=== PATIENT | female | born 1975 | race Caucasian/White ===

== ENCOUNTER → 2024-05-13 | Outpatient (CLI) | payer BC, MEDICAID, SELFPAY ==
[2024-05-13 13:59] LABS: Thyroid Stimulating Hormone 0.59 uIU/mL (0.55-4.78)
[2024-05-19 07:22] LABS: ANA Screen, IFA NEGATIVE (NEGATIVE)
== END | disposition home or self-care (01) ==
LOC: COPL 12:39
PROVIDERS: PCP Internal Medicine; Referring Provider Specialist; Visit Provider Specialist
DX: R13.10 Dysphagia, unspecified (principal)
CPT/HCPCS: 36415; 84443; 86038

== ENCOUNTER 2024-05-18 10:50 | Day surgery (SDC) | payer BC, MEDICAID, SELFPAY ==
[2024-05-15 15:21] VITALS: BMI 24.3
[2024-05-18] VITALS (10 sets, daily range): BP systolic 108–128; BP diastolic 62–91; PULSE 53–90; RESP 12–18; TEMP 36.2–36.7; O2SAT 100; BMI 24.3
[2024-05-18] MEDS: MIDAZOLAM INJ 1 MG/ML VIAL 2 ML (ASD USE ONLY) 2 MG IV (13:04)
[2024-05-18] MEDS: DiphenhydrAMINE INJ 50 MG/ML VIAL 25 MG IV (13:10)
[2024-05-18] MEDS: fentaNYL CIT INJ 50 mCg/ML AMP 2ML (ASD USE ONLY) IV (13:10)
[2024-05-18] MEDS: ONDANSETRON INJ 2 MG/ML INJ 2 ML 4 MG IV (13:10)
== END 2024-05-18 13:50 | disposition home or self-care (01) ==
PROVIDERS: PCP Internal Medicine; Referring Provider Specialist; Visit Provider Specialist
PROC: (CPT 43239; principal; 2024-05-18 13:15)
DX: K22.2 Esophageal obstruction (principal); K20.90 Esophagitis, unspecified without bleeding; Z98.0 Intestinal bypass and anastomosis status; Z80.0 Family history of malignant neoplasm of digestive organs; K57.30 Diverticulosis of large intestine without perforation or abscess without bleeding
CPT/HCPCS: 43248; 43239; 81025; A4649; C1769; J1200; J2250; J2405; J3010

== ENCOUNTER → 2024-08-26 | Outpatient (CLI) | payer BC, SELFPAY ==
--- NOTE | 2024-08-26 14:29 | XR_ITS ---
EXAMINATION: Cervical spine, 5 views Technique: Cervical spine AP, AP odontoid, lateral, bilateral obliques, 5 views Exam date and time: August 26, 2024 1451 hours INDICATIONS: Neck pain radiating to the right shoulder beginning 2 years ago FINDINGS: Adequate alignment cervical vertebral bodies Mild degenerative disc disease C5-C6 with posterior osteophyte formation and mild bilateral neural foraminal stenosis Intact odontoid No cervical fracture IMPRESSION: Mild degenerative disc disease C5-C6
== END | disposition home or self-care (01) ==
LOC: CDIM 14:03
PROVIDERS: PCP Internal Medicine; Referring Provider Orthopaedic Surgery; Visit Provider Orthopaedic Surgery
DX: M50.322 Other cervical disc degeneration at C5-C6 level (principal)
CPT/HCPCS: 72050

== ENCOUNTER 2024-12-20 10:19 | Emergency (ER) | payer BC, SELFPAY ==
[2024-12-20 10:24] VITALS: PULSE 90; RESP 20
[2024-12-20 10:25] VITALS: BP 122/77; PULSE 84; RESP 18; TEMP 36.7; O2SAT 99
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
[2024-12-20] MEDS: ACETAMINOPHEN 500 MG TABLET 1000 MG PO (11:18)
== END 2024-12-20 14:31 | disposition home or self-care (01) ==
PROVIDERS: Emergency Provider Emergency Medicine; PCP Internal Medicine
DX: S49.91XA Unspecified injury of right shoulder and upper arm, initial encounter (principal); S09.90XA Unspecified injury of head, initial encounter; V89.2XXA Person injured in unspecified motor-vehicle accident, traffic, initial encounter; Y92.410 Unspecified street and highway as the place of occurrence of the external cause
CPT/HCPCS: 70450; 73030; 99284; A9270

== ENCOUNTER → 2024-12-22 | Outpatient (CLI) | payer BC, SELFPAY ==
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
== END | disposition home or self-care (01) ==
PROVIDERS: PCP Internal Medicine; Referring Provider Internal Medicine; Visit Provider Internal Medicine
DX: S49.92XA Unspecified injury of left shoulder and upper arm, initial encounter (principal); V89.2XXA Person injured in unspecified motor-vehicle accident, traffic, initial encounter
CPT/HCPCS: 73000

== ENCOUNTER → 2025-01-21 | Outpatient (CLI) | payer BC, SELFPAY ==
--- NOTE | 2025-01-21 15:47 | XR_ITS ---
Examination: Hand, right 3 views Technique: Hand AP, oblique, lateral 3 views Date and time of exam: January 21, 2025, 1601 hours INDICATIONS: Right wrist and hand pain beginning 6 months ago FINDINGS: Moderate osteopenia, primarily juxta articular Mild to moderate nonspecific narrowing joints of the wrist and hand No erosive arthritis No fractures IMPRESSION: Moderate osteopenia Mild to moderate nonspecific narrowing joints of the wrist and hand, no erosive arthritis
--- NOTE | 2025-01-21 15:47 | XR_ITS ---
Examination: Wrist, right 3 views Technique: Wrist AP, oblique, lateral 3 views Date and time of exam: January 21, 2025, 1601 hours INDICATIONS: Right wrist pain 6 months. FINDINGS: Moderate osteopenia. Mild narrowing radiocarpal intercarpal carpometacarpal joints No erosive arthritis No fractures No avascular necrosis IMPRESSION: Moderate osteopenia Mild narrowing of radiocarpal intercarpal carpometacarpal joints
== END | disposition home or self-care (01) ==
PROVIDERS: PCP Internal Medicine; Referring Provider Orthopaedic Surgery; Visit Provider Orthopaedic Surgery
DX: M25.831 Other specified joint disorders, right wrist (principal); M25.841 Other specified joint disorders, right hand
CPT/HCPCS: 73110; 73130